=== PATIENT | male | born 1965 | race Caucasian/White ===

== ENCOUNTER → 2018-03-07 | Outpatient (REF) | payer BC | LOC: M SFHCCLAY 16:26 | DX: J02.9 Acute pharyngitis, unspecified (principal) | CPT/HCPCS: 87070 ==

== ENCOUNTER → 2018-05-31 | Outpatient (REF) | payer BC | LOC: M SMT 13:21 | PROVIDERS: ATTEND Urology | DX: Z30.2 Encounter for sterilization (principal) ==

== ENCOUNTER → 2018-08-06 | Outpatient (REF) | payer BC ==
[2018-08-06 10:18] LABS: SEMEN APPEARANCE OPAQUE (OPAQUE); SEMEN VISCOSITY LIQUID (LIQUID); SEMEN pH 8.5 (7.0-8.0); WBC CONCENTRATION >1 M/ml (<=1 M/ml)
== END ==
LOC: M SMT 10:04
PROVIDERS: ATTEND Urology
DX: Z98.52 Vasectomy status (principal)

== ENCOUNTER → 2019-09-10 | Outpatient (REF) | payer BC ==
[~2019-09-10] MED LIST: ATOR80TA59 PO; CLOP75TA2 PO; ECOT81TA5 PO; FENO160T10 PO; HYDR-3490 PO; LISI20TA33 PO; METO1TAB32 PO; PERCOCET PO
[2019-09-10 16:49] LABS: BLOOD UREA NITROGEN 22 MG/DL (7-18); CALCIUM LEVEL 9.6 MG/DL (8.5-10.1); CARBON DIOXIDE LEVEL 29 MEQ/L (21-32); CHLORIDE LEVEL 106 MEQ/L (98-107); CREATININE FOR GFR 1.28 MG/DL (0.70-1.30); GLOMERULAR FILTRATION RATE > 60.0 (>56); GLUCOSE, FASTING 109 MG/DL (70-100); POTASSIUM SERUM 3.9 MEQ/L (3.5-5.1); SODIUM LEVEL 140 MEQ/L (136-145)
== END ==
LOC: M SFHCCLAY 09:44
PROVIDERS: ATTEND Family Medicine
DX: Z01.818 Encounter for other preprocedural examination (principal); I10 Essential (primary) hypertension

== ENCOUNTER → 2019-09-14 | Outpatient (CLI) | payer BC ==
[~2019-09-14] MED LIST changes: -HYDR-3490 PO; +HYDR25TAB PO; +LISI-538 PO; -LISI20TA33 PO
== END ==
LOC: M LABSMTC 09:50
PROVIDERS: ATTEND Anesthesiology
DX: Z01.818 Encounter for other preprocedural examination (principal); Z11.59 Encounter for screening for other viral diseases
CPT/HCPCS: C9803; U0003

== ENCOUNTER 2019-09-17 06:12 | Day surgery (SDC) | payer BC ==
[~2019-09-17] VITALS: Ht 177.8 cm; Wt 117.2 kg
[~2019-09-17 06:12] MED LIST changes: -PERCOCET PO
[2019-09-17 06:50] LABS: HEMATOCRIT 44.2 % (42.0-52.0); HEMOGLOBIN 14.6 g/dl (13.5-17.5); MEAN CORPUSCULAR HEMOGLOBIN 28.6 pg (27.0-33.0); MEAN CORPUSCULAR VOLUME 86.5 fl (80.0-96.0); PLATELET COUNT, AUTOMATED 295 10^3/uL (150-450); RED BLOOD COUNT 5.11 10^6/uL (4.30-6.10); WHITE BLOOD COUNT 7.8 10^3/uL (4.0-10.0)
[2019-09-17] MEDS ORDERED: BUPIVACAINE HCL 0.25% 30ML VIAL As Ordered ONE (06:52)
[2019-09-17] MEDS ORDERED: LIDOCAINE 1% SDV 30ML VIAL As Ordered ONE (06:52)
[2019-09-17] MEDS ORDERED: ceFAZolin SOD 2 GM in IV 1 EA IV ONE (07:00)
[2019-09-17] MEDS ORDERED: LR 1,000 ML IV ONE (07:00)
[2019-09-17] MEDS ORDERED: ROCURONIUM BROMIDE 50 MG/5 ML VIAL As Ordered ONE ×2 (07:21→08:31)
[2019-09-17] MEDS ORDERED: LIDOCAINE 2% 100MG/5ML SDV (FOR ANES.) As Ordered ONE (07:21)
[2019-09-17] MEDS ORDERED: dexameTHASONE 4 MG/ML 1ML VIAL (J1100 PER 1MG) As Ordered ONE (07:21)
[2019-09-17] MEDS ORDERED: propofoL 200 MG/20 ML VIAL As Ordered ONE (07:21)
[2019-09-17] MEDS ORDERED: fentaNYL 250 MCG/5 ML INJECTION (J3010) As Ordered ONE (07:22)
[2019-09-17] MEDS ORDERED: MIDAZOLAM INJ 2MG/2ML VIAL (J2250 PER 1MG) As Ordered ONE (07:23)
[2019-09-17] MEDS ORDERED: LACRILUBE (AKWA TEARS) OPHTH OINT 3.5 GM As Ordered ONE (07:49)
[2019-09-17] MEDS ORDERED: PHENYLephrine HCL 500 MCG/5 ML (100MCG/ML) SYRINGE (J2370) As Ordered ONE (08:00)
[2019-09-17] MEDS ORDERED: ePHEDrine SULFATE 25 MG/5 ML(5MG/ML) SYRINGE As Ordered ONE (08:13)
[2019-09-17] MEDS ORDERED: HYDROmorphone HCL 2 MG/ML 1ML VIAL (J1170) As Ordered ONE (09:04)
[2019-09-17] MEDS ORDERED: SUGAMMADEX SODIUM 500 MG/5 ML VIAL (BRIDION) As Ordered ONE (09:33)
[2019-09-17] MEDS ORDERED: ONDANSETRON 4MG/2ML VIAL As Ordered ONE (09:34)
[2019-09-17] MEDS: oxyCODONE 5MG TAB PO PRN ×2 (12:06→13:03)
[2019-09-17] MEDS ORDERED: LR 1,000 ML IV SCH (12:30)
[2019-09-17] MEDS ORDERED: fentaNYL 100 MCG/2 ML INJECTION (J3010) IV PRN (12:30)
[2019-09-17] MEDS ORDERED: MORPHINE 2 MG/ML 1ML VIAL (J2270) IV PRN (12:30)
[2019-09-17] MEDS ORDERED: ACETAMINOPHEN TAB 650MG DOSE (2X325MG) PO PRN (12:30)
[2019-09-17] MEDS ORDERED: KETOROLAC 30 MG/ML 1ML VIAL IV PRN (12:30)
[2019-09-17] MEDS ORDERED: ONDANSETRON 4MG/2ML VIAL IV PRN (12:30)
--- NOTE | 2019-09-17 13:10 | POST-OPPD ---
Postoperative Procedure Note Date Of Procedure: Sep 17, 2019 PREOPERATIVE DIAGNOSIS: Recurrent right inguinal hernia POSTOPERATIVE DIAGNOSIS: Recurrent right inguinal scrotal hernia FINDINGS: Redundant sac and bulky preperitoneal fat tissue/cord lipoma reduced back into the abdomen. This was incarcerated with contribution from a folded up inferior portion of the previously placed posterior mesh from a prior repair. The prior mesh was removed except for small portion at the medial edge towards the symphysis pubis. A new 15 x 10 cm by attacks Pro chief development officer laparoscopic mesh was placed and secured to the Moises's ligament medially and medial to the inferior epigastric artery superiorly. A 15 Czech Pablito drain was left and threaded through to the inguinal canal. PROCEDURE: Robotic-assisted laparoscopic repair of right inguinal hernia, explantation of prior mesh (rTAPP) SURGEON: Soham Valente LENS SILVERER: ANESTHESIA: General Anesthesia SPECIMENS: old mesh ESTIMATED BLOOD LOSS: 30 mLs REPLACED: DRAINS: 15 fr pablito drain COMPLICATIONS: none POSTOPERATIVE CONDITION: extubated, stable to PACU SOHAM VALENTE MD Sep 17, 2019 12:45
[2019-09-17 13:25] VITALS: BP 138/89
[2019-09-17 13:55] VITALS: BP 129/82
[2019-09-17 15:48] VITALS: BP 135/82
[2019-09-17 16:55] VITALS: BP 133/81
--- NOTE | 2019-09-17 16:57 | REP ---
SCROTAL ULTRASOUND: Real-time sonographic evaluation of the scrotum and contents performed. The testicles are normal in size and echotexture, right testicle measuring 4.4 x 2.1 x 3.0 cm and left testicle 4.6 x 2.4 x 2.8 cm. There is no testicular mass. There is no torsion of either testicle with duplex Doppler evaluation. Multiple cysts are seen in the head of the right epididymis. Largest is 7 mm in diameter. Tail of the right epididymis is somewhat prominent and there are tiny echogenic foci in the body and tail of the right epididymis. There is air in the right inguinal canal and superior scrotum likely the result of right inguinal hernia repair earlier today. IMPRESSION: Normal testicles with no mass or torsion. Subcentimeter cysts in the head of the right epididymis. There is air in the right inguinal canal and superior scrotum likely postoperative in nature status post right inguinal hernia repair today. Electronically Signed by Jonathan Salinas MD 09/17/2019 07:43 P
[2019-09-17] MEDS: PERCOCET 5MG/325MG TAB PO PRN ×2 (17:44→23:08)
[2019-09-17 17:55] VITALS: BP 130/79
[2019-09-17] MEDS: lisinopriL 20 MG TAB PO SCH (20:12)
[2019-09-17 22:00] VITALS: BP 133/74
[2019-09-18 02:00] VITALS: BP 132/81
[2019-09-18 06:00] VITALS: BP 141/90
[2019-09-18] MEDS: PERCOCET 5MG/325MG TAB PO PRN ×2 (06:16→10:22)
[2019-09-18 07:03] LABS: BASO % 0.3 % (0.0-1.0); EOS # 0.1 10^3/uL (0.0-0.5); EOS % 0.6 % (0.0-3.0); HEMATOCRIT 42.8 % (42.0-52.0); HEMOGLOBIN 13.8 g/dl (13.5-17.5); LYMPH # 2.1 10^3/uL (1.5-5.0); LYMPH % 17.2 % (24.0-44.0); MEAN CORPUSCULAR HEMOGLOBIN 28.7 pg (27.0-33.0); MEAN CORPUSCULAR HGB CONC 32.2 g/dl (32.0-36.5); MONO # 1.4 10^3/uL (0.0-0.8); MONO % 11.8 % (0.0-5.0); NEUTROPHILS # 8.3 10^3/uL (1.5-8.5); NEUTROPHILS % 69.6 % (36.0-66.0); PLATELET COUNT, AUTOMATED 273 10^3/uL (150-450); RED BLOOD COUNT 4.81 10^6/uL (4.30-6.10)
[2019-09-18 07:27] LABS: BLOOD UREA NITROGEN 18 MG/DL (7-18); CALCIUM LEVEL 9.2 MG/DL (8.5-10.1); CARBON DIOXIDE LEVEL 29 MEQ/L (21-32); CHLORIDE LEVEL 106 MEQ/L (98-107); CREATININE FOR GFR 1.13 MG/DL (0.70-1.30); GLOMERULAR FILTRATION RATE > 60.0 (>56); GLUCOSE, FASTING 106 MG/DL (70-100); POTASSIUM SERUM 3.7 MEQ/L (3.5-5.1); SODIUM LEVEL 140 MEQ/L (136-145)
--- NOTE | 2019-09-18 07:55 | IPNPDOC ---
Text Note Date of Service The patient was seen on 09/18/19. NOTE Doing well. Walking comfortably in the room. Reports mild discomfort at the r ight groin and scrotum. CÉSAR drainage overnight 45/30 mLs bloody One exam round abdomen, protuberant. He has 3 port sites covered with dermabond, clean and dry. Drain site clean and dry. Nontender on abdomen. Mild tenderness on lifting the right scrotum, minimal swelling at the right groin and scrotum, soft. duplex US of right testicle noted Impression/PLan POD1 RA lap right inguinal hernia repair, explantation of old mesh Patient will go home with the drain and see me back sunday for removal of drain light activity wear supportive underwear VS,Fishbone, I+O VS, Fishbone, I+O Laboratory Tests 09/18/19 06:36 Vital Signs Date Time Temp Pulse Resp B/P (MAP) Pulse Ox O2 Delivery O2 Flow Rate FiO2 09/18/19 06:46 18 09/18/19 06:00 97.1 68 141/90 (107) 96 NIPPV (BIPAP/CPAP) 09/17/19 18:14 3.0 I&O- Last 24 Hours up to 6 AM 09/18/19 05:57 Intake Total 3520 ml Output Total 430 ml Balance 3090 ml TOMEKA PICHARDO MD Sep 18, 2019 07:54
[2019-09-18] MEDS ORDERED: PERCOCET PO (08:02)
[2019-09-18 08:05] VITALS: BP 141/90
[2019-09-18] MEDS: lisinopriL 20 MG TAB PO SCH (08:05)
[2019-09-18] MEDS ORDERED: METOPROLOL SUCC *XL* 25MG TAB (TopROL *XL*) PO SCH (09:00)
[2019-09-18] MEDS ORDERED: ASPIRIN 81 MG ENTERIC TAB PO SCH (09:00)
[2019-09-18] MEDS ORDERED: hydroCHLOROthiazide 25 MG TAB PO SCH (09:00)
[2019-09-18] MEDS ORDERED: ATORVASTATIN 20 MG TAB PO SCH (09:00)
--- NOTE | 2019-09-18 09:31 | ROOPDOC ---
[facility] Report Of Operation Report of Operation DATE OF PROCEDURE: September 17, 2019 PREOPERATIVE DIAGNOSIS: Recurrent right inguinal hernia POSTOPERATIVE DIAGNOSIS: Recurrent right inguinal scrotal hernia FINDINGS: Redundant sac and bulky preperitoneal fat tissue/cord lipoma reduced back into the abdomen. This was incarcerated with contribution from a folded up inferior portion of the previously placed posterior mesh from a prior repair. The prior mesh was removed except for small portion at the medial edge towards the symphysis pubis. A new 15 x 10 cm by attacks Pro can washer laparoscopic mesh was placed and secured to the Moises's ligament medially and medial to the inferior epigastric artery superiorly. A 15 Malian Pablito drain was left and threaded through to the inguinal canal. PROCEDURE: Robotic-assisted laparoscopic repair of right inguinal hernia, e xplantation of prior mesh (rTAPP) SURGEON: Soham Valente FIRE SPRINKLER FITTER: ANESTHESIA: General Anesthesia SPECIMENS: old mesh ESTIMATED BLOOD LOSS: 30 mLs REPLACED: DRAINS: 15 fr pablito drain COMPLICATIONS: none POSTOPERATIVE CONDITION: extubated, stable to PACU DESCRIPTION OF PROCEDURE: Patient received 2 g of Ancef IV preoperatively for wound prophylaxis. Patient was brought to the operating room, placed supine on the operating table. Compression boots placed in both lower extremities for DVT prophylaxis. After adequate general anesthesia started, he was placed on a lithotomy position. A vargas catheter placed without difficulty. His abdomen and groin/pelvic area then prepped and draped in the usual sterile fashion.We paused for a surgical timeout using both pre-incision safety checklist to verify correct patient, procedure site and additional clinical information prior to beginning the procedure Entry to the abdomen done through a small incision roughly 5 cms the umbilical skin cleft. He had a prior umbilical hernia repair and is not aware if he had mesh placed or not. A Veress needle is inserted on a controlled fashion. CO2 insufflation started to pressure 15 mmHg. Using the same incision an 8 mm robotic trochar was then placed under direct vision of a 5 mm laparoscope. The insertion site was inspected for injury and none was found. Patient was then positioned on a 8 Trendelenburg position for adequate view of the hernia defect. 2 working ports placed to the right and left of the umbilical port roughly 8 cms away from the camera port along the same line. The Kiio robot tower was then positioned in place and the trochars docked onto the robot. I then unscrubbed and took control of the camera and the robotic instruments at the surgeon's console. I used a 0 8 mm robotic camera with a forceps bipolar forceps, the left hand connected to bipolar cautery and robotic scissors connected to a monopolar cautery which was later exchanged for suction as well as a fantasma-suture cut . Operative Findings: On diagnostic laparoscopy, the right groin area was inspected and there is evidence of a posteriorly placed mesh. No evidence of recurrence. The umbilicus itself was covered with bulky fat and I could not assess if there was a mesh failure or not so there was no recurrence of the hernia. The umbilical ligaments are not well-defined. He is a moderate-sized opening of the internal ring consistent with an indirect hernia with a small direct hernia component. There was nothing passing through the hernia defect. The peritoneum is thinned out. The peritoneum was opened up about 5 cm above the superior edge of the fascial defect of the inguinal hernia starting medially and proceeding laterally towards the level of the anterior superior iliac spine. I stayed mainly in the preperitoneal space leaving the parietal covering of the transversalis to the inferior epigastric artery intact. I then proceeded medially to the space of Retzius opening up the space with blunt dissection and bringing down the urinary bladder. The pubic tubercle was exposed past the symphysis pubis medially and roughly about 2-3 cm inferiorly. I then proceeded laterally at the space of Bogros again staying at the preperitoneal space and leaving the parietal covering of the abdominal wall muscles to prevent injury to the groin nerves traversing the area. Once both spaces were developed, I then receded reducing the hernia sac. This is quite redundant. The sac was dissected free of the vas deferens and testicular vessels with minimal manipulation of the vas deferens and testicular vessels. Once this was reduced to the preperitoneal space I continued dissecting this inferiorly and I parietal advised the vas deferens for short segment to make sure the peritoneum is free from the transversalis fascia. He has a moderate sized and bulky cord lipoma which was reduced into the preperitoneal space. The testicular vessels itself that are wrapped with fatty tissue and a voided dissecting this to prevent bleeding. The cord lipoma was reduced further away to the preperitoneal space. There was some bleeding from the vessel in the preperitoneum that to cauterize. The cord lipoma was included to the peritoneal flap. I then made sure the leftover attachments of the cord lipoma are well dissected did not interfere with the peritoneal flap when the flap is being closed. I used a ruler to measure [employer] and have an adequate space for a 15 x 10 cm mesh. After fully dissecting the preperitoneal space, we checked for adequate hemostasis. I chose a 15 x 10 cm Parietex Pro Systems Mechanic self fixating mesh. This was folded with the center of the mesh marked for positioning. This was then delivered intra-ab dominally through one of the trochars. In a controlled fashion this was positioned into the preperitoneal space with the medial side past the symphysis pubis, the inferior side roughly about 2 cm below the pubic tubercle towards the pubic tubercle. The mesh is centered to the indirect inguinal hernia defect and has adequate coverage of both the direct hernia and the femoral space. The pocket was enlarged laterally to accommodate the mesh. This was carefully pressed onto the abdominal wall and I made sure that it was flattened up. After careful placement of the mesh, the peritoneal flap was then closed with a running suture of 3-0V LOC suture. As the hernia sac was long and redundant I incorporated the hernia sac into the closure of the peritoneum. I then surveyed the abdomen and pelvis for any signs of injury. The instruments were removed, the robot undocked. The abdomen was deflated. All ports were removed. The skin incisions were closed with 4-0 Monocryl in subcuticular fashion. The incisions were covered with Dermabond. The port sites were again infiltrated with local anesthesia. An ilioinguinal nerve block was also performed. SOHAM VALENTE MD Sep 18, 2019 09:31
== END 2019-09-18 10:52 | disposition home or self-care (01) ==
LOC: M SDC 06:12 → M MS5PR 13:25 → M SDC 09-18 10:52
PROVIDERS: ATTEND Surgery
DX: K40.91 Unilateral inguinal hernia, without obstruction or gangrene, recurrent (principal); I10 Essential (primary) hypertension; I25.10 Atherosclerotic heart disease of native coronary artery without angina pectoris; Z98.61 Coronary angioplasty status; G47.30 Sleep apnea, unspecified; J45.909 Unspecified asthma, uncomplicated; F32.9 Major depressive disorder, single episode, unspecified; Z79.82 Long term (current) use of aspirin; Z79.899 Other long term (current) drug therapy; Z88.7 Allergy status to serum and vaccine; Z91.018 Allergy to other foods
CPT/HCPCS: 36415; 49650; 76870; 80048; 85025; 85027; 88300; 93976; 96374; C1781; J0690; J1100; J1170; J1885; J2250; J2370; J2405; J3010

== ENCOUNTER → 2019-12-02 | Outpatient (CLI) | payer BC ==
[~2019-12-02] MED LIST changes: +PERCOCET PO
--- NOTE | 2019-12-22 10:24 | REP ---
SCROTAL ULTRASOUND CLINICAL: Groin pain status post inguinal hernia repair. TECHNIQUE: Real-time du scale and color Doppler evaluation using linear high frequency transducer. FINDINGS: The right testicle measured 4.5 x 2.8 x 3.1 cm and appears normal in echotexture and vascularity. There is a large right hydrocele with debris now identified and new compared to 09/17/2019. A small incidental right appendix epididymis is noted measuring 4.3 x 3 mm. The previously noted right-sided epididymal cysts are not identifiable on current examination, and this may be secondary to compression by large hydrocele. The left testicle measures 3.7 x 2.3 x 2.9 cm and is normal in generalized echotexture and vascularity. A 2 x 2 x 2 mm echogenic focus is identified in the left testicle which may represent small calcification. A small left-sided hydrocele is also identified along with calcified scrotal pearls in the dependent portion measuring 2 x 1.4 x 1.4 mm. Few left-sided epididymal cysts are identified measuring up to 2.4 x 1.4 x 3.0 mm. Left-sided varicoceles are also now identified measuring up to 3 mm diameter on Valsalva. IMPRESSION: * Acute findings include large right and smaller left-sided hydroceles with layering debris. Left-sided varicoceles measuring up to 3 mm diameter. Nonacute findings which may warrant follow up include intratesticular calcification in the left testicle and left-sided scrotal pearls which appear calcified. Few epididymal head cysts identified on the left side on current examination and previously noted on the right as well but probably compressed due to the large hydrocele MTDD
--- NOTE | 2019-12-23 14:08 | REP ---
LIMITED PELVIC ULTRASOUND CLINICAL: Groin pain status post hernia repair. TECHNIQUE: Real-time du scale and color evaluation using linear high frequency transducer. FINDINGS: The left inguinal canal appears normal. There is a complex septated collection in the right external inguinal ring region measuring 2.7 x 1.6 x 2.8 cm, which may reflect hematoma. There is no obvious right inguinal hernia. IMPRESSION: Complex septated avascular collection adjacent to the right external inguinal ring consistent with hematoma. Clinical/physical correlation is recommended along with follow-up. JOSÉ MIGUELD
== END ==
LOC: M RAD 13:15
PROVIDERS: ATTEND Surgery
DX: N43.3 Hydrocele, unspecified (principal)

== ENCOUNTER → 2020-02-18 | Outpatient (CLI) | payer BC ==
--- NOTE | 2020-02-19 09:15 | REP ---
INDICATION: HYDROCELE AND GROIN PAIN RIGHT SIDE COMPARISON: None. TECHNIQUE: Realtime grayscale and color evaluation using curved array transducer. FINDINGS: The right groin demonstrates thickened inguinal ring which is consistent with the history of previous repair. No right inguinal hernia is currently identified. The left groin demonstrates a small inguinal ring defect with small non reducible fat containing hernia measuring up to roughly 4 cm. IMPRESSION: 1. Small non reducible fat containing left inguinal hernia. <Electronically signed by Garrett Hart > 02/19/20 [id number]
--- NOTE | 2020-02-19 09:22 | REP ---
INDICATION: HYDROCELE AND GROIN PAIN RIGHT SIDE COMPARISON: 12/02/2019 TECHNIQUE: Salinas scale and color Doppler evaluation using linear and curved array transducer with color Doppler evaluation. FINDINGS: A large right hydrocele is again noted. The right testicle is normal in appearance. Two small right epididymal cysts are again identified measuring 4 mm each. There is no evidence for testicular mass, acute infectious/inflammatory change, or torsion. Right testicle measures 4.0 x 3.1 x 2.9 cm. No varicoceles identified on current examination. A small left hydrocele is again noted with 4 mm scrotal pleural/calcification. The left testicle and epididymis are normal in appearance. There is no evidence for left testicular mass, acute infectious/inflammatory change, or torsion. Left testicle measures 3.8 x 2.6 x 2.4 cm. No varicoceles identified on current examination. IMPRESSION: 1. Large right hydrocele and small left hydrocele along with left-sided extratesticular calcifications (scrotal sandy) remain unchanged. 2. The bilateral testicles and epididymi are otherwise relatively normal in appearance. <Electronically signed by Garrett Hart > 02/19/20 [id number]
== END ==
LOC: M RAD 16:06
PROVIDERS: ATTEND Nurse Practitioner Women's Health
DX: N43.3 Hydrocele, unspecified (principal); R10.31 Right lower quadrant pain; K44.9 Diaphragmatic hernia without obstruction or gangrene

== ENCOUNTER → 2020-03-08 | Outpatient (CLI) | payer BC ==
--- NOTE | 2020-03-08 11:16 | REP ---
INDICATION: R06.2, WHEEZING. COMPARISON: Comparison radiograph March 13, 2016. TECHNIQUE: Two views.. FINDINGS: The lungs are well inflated and free of infiltrate. The pleural angles are sharp. The heart size is normal. Pulmonary vasculature is not increased. No significant bony abnormality is seen. There is mild hyperinflation. IMPRESSION: Mild hyperinflation. No infiltrate seen. Otherwise no active disease.. <Electronically signed by Alex Bardales > 03/08/20 [id number]
== END ==
LOC: M CLY 10:57
PROVIDERS: ATTEND Physician Assistant
DX: R06.2 Wheezing (principal)

== ENCOUNTER → 2020-04-06 | Outpatient (CLI) | payer BC ==
--- NOTE | 2020-04-06 10:21 | REP ---
INDICATION: R05, COUGH COMPARISON: 03/08/2020 TECHNIQUE: PA and lateral. FINDINGS: The mediastinum and cardiac silhouette are normal. The lung dozier are clear and without acute consolidation, effusion, or pneumothorax. The skeletal structures are intact and normal. IMPRESSION: No acute cardiopulmonary process. <Electronically signed by Garrett Hart > 04/06/20 [id number]
== END ==
LOC: M CLY 09:54
PROVIDERS: ATTEND Physician Assistant
DX: R05 Cough (principal)

== ENCOUNTER → 2020-05-19 | Outpatient (REF) | payer BC ==
[~2020-05-19] MED LIST changes: +HYDR-3490 PO; -HYDR25TAB PO; -LISI-538 PO; +LISI20TA33 PO
[2020-05-19 12:55] LABS: HEMOGLOBIN 14.3 g/dl (13.5-17.5); MEAN CORPUSCULAR HEMOGLOBIN 27.4 pg (27.0-33.0); MEAN CORPUSCULAR HGB CONC 31.1 g/dl (32.0-36.5); MEAN CORPUSCULAR VOLUME 88.3 fl (80.0-96.0); PLATELET COUNT, AUTOMATED 279 10^3/uL (150-450); RED BLOOD COUNT 5.21 10^6/uL (4.30-6.10); WHITE BLOOD COUNT 9.1 10^3/uL (4.0-10.0)
[2020-05-19 13:20] LABS: ALBUMIN 3.6 GM/DL (3.2-5.2); BILIRUBIN,TOTAL 0.5 MG/DL (0.2-1.0); CALCIUM LEVEL 9.6 MG/DL (8.5-10.1); CHOLESTEROL RISK RATIO 3.062 (<5); CREATININE FOR GFR 1.32 MG/DL (0.70-1.30); GLOMERULAR FILTRATION RATE 59.7 (>56); POTASSIUM SERUM 3.9 MEQ/L (3.5-5.1); TOTAL PROTEIN 6.3 GM/DL (6.4-8.2)
== END ==
LOC: M LABDRAWC 12:00
PROVIDERS: ATTEND Internal Medicine Cardiovascular Disease
DX: R06.02 Shortness of breath (principal); I10 Essential (primary) hypertension; R00.2 Palpitations; E78.5 Hyperlipidemia, unspecified; I25.10 Atherosclerotic heart disease of native coronary artery without angina pectoris; I25.84 Coronary atherosclerosis due to calcified coronary lesion